=== PATIENT | female | born 2000 | race African-American/Black ===

== ENCOUNTER 2022-05-19 07:32 | Emergency (ER) | payer BC, MEDICAID ==
[~2022-05-19] VITALS: Ht 170.2 cm; Wt 59.0 kg
[2022-05-19 07:52] VITALS: BP 108/72
[2022-05-19] MEDS ORDERED: ONDANSETRON HCL 4MG TABLET PO ONE (08:30)
[2022-05-19] MEDS ORDERED: ACETAMINOPHEN 325MG TABLET PO ONE (08:30)
== END 2022-05-19 09:04 | disposition home or self-care (01) ==
LOC: ER 07:38
DX: N93.9 Abnormal uterine and vaginal bleeding, unspecified (principal)
CPT/HCPCS: 81025; 99282

== ENCOUNTER 2023-07-16 14:22 | Emergency (ER) | payer BC, OTHER ==
[~2023-07-16] VITALS: Ht 170.2 cm; Wt 58.0 kg
[2023-07-16 14:29] VITALS: O2SAT 100
[2023-07-16] MEDS: TETRACAINE 0.5% OPHTH DROPS 4ML EACHEYE ONE (14:45)
[2023-07-16] MEDS: FLUORESCEIN SODIUM 1MG/STRIP EACHEYE ONE (14:45)
[2023-07-16 16:01] VITALS: BP 110/71; PULSE 68; RESP 14; TEMP 98
== END 2023-07-16 15:39 | disposition home or self-care (01) ==
LOC: ER 14:39
DX: H57.11 Ocular pain, right eye (principal)
CPT/HCPCS: 99283